=== PATIENT | male | born 1960 | race Caucasian/White ===

== ENCOUNTER → 2017-01-02 | Outpatient (CLI) | payer BC ==
[~2017-01-02] MED LIST: ALLERGY RELIEF10 M1 PO; ATARAX25 MG PO; AUGMENTIN 875 M1 TAB PO; CARVEDILOL25 MG PO; CELEBREX200 MG PO; CIPRODEX 0.3%-7.5 ML OT; CLARITIN10 MG PO; Ecotrin325 MG PO; FLOMAX0.4 MG PO; HYDROCHLOROTH12.5 M1 PO; LASIX40 MG PO; LIDEX0.05% T; LISINOPRIL10 MG PO; MEDROL DOSEPAK4 MG PO; METFORMIN500 MG PO; POTASSIUM CHLO20 MEQ PO; PREDNICOT20 MG PO; SIMVASTATIN40 MG PO; VICODIN 5/500 505 MG PO; VICODIN ES 7501 TAB PO; ZOFRAN4 MG PO
[2017-01-02 16:21] LABS: ALBUMIN 3.8 gm/dl (3.1-4.5); ALKALINE PHOSPHATASE 97 U/L (45-117); BILIRUBIN, DIRECT 0.1 mg/dL (0.0-0.2); BUN 12 mg/dl (7-24); CHLORIDE 100 mmol/L (98-107); CHOLESTEROL 134 mg/dL (<200); CREATININE 0.92 mg/dL (0.70-1.30); POTASSIUM 4.6 mmol/L (3.5-5.1); SGOT/AST 35 IU/L (3-35); SGPT/ALT 27 U/L (12-78); SODIUM 136 mmol/L (136-145); TRIGLYCERIDES 119 mg/dl (<150); VLDL CHOLESTEROL 24 mg/dL (6-40)
[2017-01-02 16:24] LABS: HDL CHOLESTEROL 57 mg/dl (40-60); LDL CHOLESTEROL 53 mg/dL (9-159)
== END | disposition home or self-care (01) ==
LOC: LAB 15:17
PROVIDERS: Internal Medicine
DX: Z12.5 Encounter for screening for malignant neoplasm of prostate (principal); E11.9 Type 2 diabetes mellitus without complications; I25.10 Atherosclerotic heart disease of native coronary artery without angina pectoris; I10 Essential (primary) hypertension; E78.4 Other hyperlipidemia; R35.1 Nocturia; E55.9 Vitamin D deficiency, unspecified; Z79.1 Long term (current) use of non-steroidal anti-inflammatories (NSAID)

== ENCOUNTER 2017-01-21 13:50 | Emergency (ER) | payer BC ==
[2017-01-21] MEDS ORDERED: NAPROSYN500 MG PO (15:03)
== END 2017-01-21 15:13 | disposition home or self-care (01) ==
LOC: ED 13:50
DX: M54.5 Low back pain (principal); M25.552 Pain in left hip; Z98.890 Other specified postprocedural states; Z79.82 Long term (current) use of aspirin; Z79.899 Other long term (current) drug therapy; W10.9XXA Fall (on) (from) unspecified stairs and steps, initial encounter; Y93.89 Activity, other specified; Y92.89 Other specified places as the place of occurrence of the external cause; Y99.9 Unspecified external cause status

== ENCOUNTER 2017-01-25 11:17 | Emergency (ER) | payer BC ==
[~2017-01-25] VITALS: Ht 187.9 cm; Wt 127.0 kg
[~2017-01-25 11:17] MED LIST changes: +NAPROSYN500 MG PO
[2017-01-25] MEDS ORDERED: 'PARAFON FORTE500 M1 PO (12:30)
== END 2017-01-25 13:34 | disposition home or self-care (01) ==
LOC: ED 11:17
DX: M25.552 Pain in left hip (principal); R03.0 Elevated blood-pressure reading, without diagnosis of hypertension; Z98.890 Other specified postprocedural states; Z79.82 Long term (current) use of aspirin; Z79.899 Other long term (current) drug therapy

== ENCOUNTER 2018-11-20 22:53 | Emergency (ER) | payer BC ==
[~2018-11-20] VITALS: Ht 187.9 cm; Wt 147.4 kg
[~2018-11-20 22:53] MED LIST changes: +'PARAFON FORTE500 M1 PO
[2018-11-21] MEDS ORDERED: ZITHROMAX250 MG PO (00:45)
== END 2018-11-21 00:56 | disposition home or self-care (01) ==
LOC: ED 22:53
DX: J06.9 Acute upper respiratory infection, unspecified (principal); R05 Cough; R09.89 Other specified symptoms and signs involving the circulatory and respiratory systems; Z98.890 Other specified postprocedural states; Z79.82 Long term (current) use of aspirin

== ENCOUNTER 2022-05-22 11:26 | Emergency (ER) | payer BC ==
[~2022-05-22] VITALS: Wt 133.4 kg
[~2022-05-22 11:26] MED LIST changes: +ZITHROMAX250 MG PO
[2022-05-22 12:11] LABS: BASO # 0.1 10*3/uL (0.0-0.1); BASO % 0.9 % (0.0-1.0); EOS # 0.3 10*3/uL (0.0-0.4); EOS % 4.2 % (1.0-4.0); HEMATOCRIT 46.3 % (42.0-52.0); LYMPH # 2.2 10*3/uL (1.3-4.4); LYMPH % 26.8 % (27.0-41.0); MEAN CELL VOLUME 91.1 fl (80.0-94.0); MEAN CORPUSCULAR HGB 30.1 pg (27.0-31.0); MONO # 0.7 10*3/uL (0.1-1.0); MONO % 8.5 % (3.0-9.0); NEUT # 4.8 10*3/uL (2.3-7.9); NEUT % 59.4 % (47.0-73.0); PLATELET COUNT AUTOMATED 222 10*3/uL (130-400); RED BLOOD COUNT 5.08 10*6/uL (4.50-5.90); RED CELL DISTRI WIDTH 12.4 % (0-14.5)
[2022-05-22 12:19] LABS: ACT PARTIAL THROMBO TIME 28.4 SECONDS (20.0-32.1)
[2022-05-22 12:26] LABS: ALKALINE PHOSPHATASE 71 U/L (46-116); BUN 18 mg/dl (9-23); CHLORIDE 104 mmol/L (98-107); POTASSIUM 4.4 mmol/L (3.4-5.1); SGPT/ALT 21 U/L (10-49); TOTAL PROTEIN 7.5 gm/dL (6.0-8.0)
== END 2022-05-22 14:23 | disposition home or self-care (01) ==
LOC: ED 11:26
PROVIDERS: Emergency Medicine
DX: R07.9 Chest pain, unspecified (principal); Z79.899 Other long term (current) drug therapy

== ENCOUNTER 2022-06-23 15:20 | Emergency (ER) | payer BC ==
[~2022-06-23] VITALS: Ht 187.9 cm; Wt 131.5 kg
[2022-06-23] MEDS ORDERED: WESTCORT T (15:51)
[2022-06-24] MEDS ORDERED: PREDNISONE50 MG PO (16:32)
== END 2022-06-23 15:59 | disposition home or self-care (01) ==
LOC: ED 15:20
DX: L23.7 Allergic contact dermatitis due to plants, except food (principal); I11.0 Hypertensive heart disease with heart failure; I50.9 Heart failure, unspecified; Z87.442 Personal history of urinary calculi; I48.91 Unspecified atrial fibrillation; E78.5 Hyperlipidemia, unspecified; Z98.890 Other specified postprocedural states

== ENCOUNTER 2022-06-24 15:48 | Emergency (ER) | payer BC ==
[~2022-06-24 15:48] MED LIST changes: +WESTCORT T
[2022-06-24] MEDS ORDERED: PREDNISONE50 MG PO (16:32)
== END 2022-06-24 16:43 | disposition home or self-care (01) ==
LOC: ED 15:48
DX: L23.7 Allergic contact dermatitis due to plants, except food (principal); Z79.899 Other long term (current) drug therapy

== ENCOUNTER 2024-07-01 12:48 | Emergency (ER) | payer OTHER ==
[~2024-07-01] VITALS: Ht 187.9 cm; Wt 136.1 kg
[~2024-07-01 12:48] MED LIST changes: +ELIQUIS5 M1 PO; +FUROSEMIDE40 MG PO; +LEVOFLOXACIN750 M2 PO; +LISINOPRIL10 M1 PO; +PREDNISONE50 MG PO; +TAMIFLU 75MG CA75 MG PO
[2024-07-01] MEDS ORDERED: AVPAK AZITHROM250 M1 PO (13:17)
== END 2024-07-01 13:25 | disposition home or self-care (01) ==
LOC: ED 12:48
DX: J32.0 Chronic maxillary sinusitis (principal); Z79.899 Other long term (current) drug therapy; Z98.890 Other specified postprocedural states

== ENCOUNTER 2025-01-11 01:06 | Emergency (ER) | payer OTHER ==
[~2025-01-11] VITALS: Wt 129.3 kg
[~2025-01-11 01:06] MED LIST changes: +AVPAK AZITHROM250 M1 PO
[2025-01-11] MEDS ORDERED: SILDENAFIL CIT100 MG PO (06:34)
== END 2025-01-11 02:00 | disposition home or self-care (01) ==
LOC: ED 01:06
DX: R22.42 Localized swelling, mass and lump, left lower limb (principal); R79.1 Abnormal coagulation profile; I11.0 Hypertensive heart disease with heart failure; I50.9 Heart failure, unspecified; G47.30 Sleep apnea, unspecified; I48.91 Unspecified atrial fibrillation; E78.5 Hyperlipidemia, unspecified; Z98.890 Other specified postprocedural states; Z87.442 Personal history of urinary calculi

== ENCOUNTER 2025-01-11 06:25 | Emergency (ER) | payer OTHER ==
[~2025-01-11] VITALS: Ht 187.9 cm; Wt 147.4 kg
[2025-01-11] MEDS ORDERED: SILDENAFIL CIT100 MG PO (06:34)
== END 2025-01-11 08:02 | disposition home or self-care (01) ==
LOC: ED 06:25
DX: M71.22 Synovial cyst of popliteal space [Baker], left knee (principal); R22.42 Localized swelling, mass and lump, left lower limb; I11.0 Hypertensive heart disease with heart failure; I50.9 Heart failure, unspecified; G47.30 Sleep apnea, unspecified; I48.91 Unspecified atrial fibrillation; E78.5 Hyperlipidemia, unspecified; Z98.890 Other specified postprocedural states

== ENCOUNTER 2025-02-10 19:00 | Emergency (ER) | payer OTHER ==
[~2025-02-10] VITALS: Ht 187.9 cm; Wt 133.8 kg
[~2025-02-10 19:00] MED LIST changes: +SILDENAFIL CIT100 MG PO
[2025-02-10] MEDS ORDERED: PREDNISONE20 M1 PO (19:49)
[2025-02-10] MEDS ORDERED: METHOCARBAMOL750 M1 PO (19:49)
[2025-02-10] MEDS ORDERED: METHOCARBAMOL 750 MG TAB PO ONE (19:50)
== END 2025-02-10 20:05 | disposition home or self-care (01) ==
LOC: ED 19:00
DX: S30.0XXA Contusion of lower back and pelvis, initial encounter (principal); Z79.899 Other long term (current) drug therapy; Z98.890 Other specified postprocedural states; W18.39XA Other fall on same level, initial encounter; Y93.89 Activity, other specified; Y92.89 Other specified places as the place of occurrence of the external cause; Y99.8 Other external cause status

== ENCOUNTER 2025-02-17 07:56 | Emergency (ER) | payer OTHER ==
[~2025-02-17] VITALS: Wt 131.5 kg
[~2025-02-17 07:56] MED LIST changes: +METHOCARBAMOL750 M1 PO; +PREDNISONE20 M1 PO
[2025-02-17] MEDS ORDERED: TRAMADOL HCL50 MG PO (10:01)
[2025-02-17] MEDS ORDERED: PREDNISONE20 M1 PO (10:01)
[2025-02-17] MEDS ORDERED: METHOCARBAMOL750 M1 PO (10:01)
== END 2025-02-17 10:11 | disposition home or self-care (01) ==
LOC: ED 07:56
DX: S30.0XXA Contusion of lower back and pelvis, initial encounter (principal); M51.369 Other intervertebral disc degeneration, lumbar region without mention of lumbar back pain or lower extremity pain; I11.0 Hypertensive heart disease with heart failure; I50.9 Heart failure, unspecified; G47.30 Sleep apnea, unspecified; I48.91 Unspecified atrial fibrillation; E78.5 Hyperlipidemia, unspecified; Z98.890 Other specified postprocedural states; Z87.442 Personal history of urinary calculi; W19.XXXA Unspecified fall, initial encounter; Y93.89 Activity, other specified; Y92.89 Other specified places as the place of occurrence of the external cause; Y99.8 Other external cause status